=== PATIENT | male | born 1980 ===

== ENCOUNTER 2017-01-19 03:36 | Emergency (ER) | payer BC ==
[2017-01-19 03:50] VITALS: BP 117/76; PULSE 95; RESP 18; TEMP 97.7; O2SAT 100
--- NOTE | 2017-01-19 05:24 | ED PDOC ---
Upper Extremity Pain/Injury Time Seen by Provider: 01/19/17 03:57 Chief Complaint (Nursing): Upper Extremity Problem/Injury Chief Complaint (Provider): Right Shoulder Injury History Per: Patient History/Exam Limitations: no limitations Onset/Duration Of Symptoms: Hrs Current Symptoms Are (Timing): Still Present Additional Complaint(s): 3:57 Jarad Davis is a 36 year old male that presents to the ED with a chief complaint of a right shoulder injury he obtained directly as a result of falling down a flight stairs on an outstretched right hand. which led to him feeling pain in his right shoulder, earlier today. Patient admits to drinking, and denies any LOC or head injury. Past Medical History Reviewed: Historical Data, Nursing Documentation, Vital Signs Vital Signs: Last Vital Signs Temp 97.7 F 01/19/17 03:46 Pulse 95 H 01/19/17 03:46 Resp 18 01/19/17 03:46 BP 117/76 01/19/17 03:46 Pulse Ox 100 01/19/17 03:46 - Medical History PMH: No Chronic Diseases - Family History Family History: States: Unknown Family Hx - Allergies Allergies/Adverse Reactions: Allergies Allergy/AdvReac Type Severity Reaction Status Date / Time No Known Allergies Allergy Verified 01/19/17 03:46 Review of Systems Musculoskeletal: Positive for: Shoulder Pain (right ) Physical Exam - Reviewed Nursing Documentation Reviewed: Yes Vital Signs Reviewed: Yes - Physical Exam Appears: Positive for: Non-toxic, Uncomfortable Head Exam: Positive for: ATRAUMATIC, NORMOCEPHALIC Skin: Positive for: Normal Color, Warm, Dry ENT: Positive for: Normal ENT Inspection Cardiovascular/Chest: Positive for: Regular Rate, Rhythm. Negative for: Murmur Respiratory: Positive for: Normal Breath Sounds. Negative for: Wheezing Pulses-Radial (L): 2+ Pulses-Radial (R): 2+ Extremity: Positive for: Deformity (right shoulder is deformed) Neurologic/Psych: Positive for: Alert, Oriented - ECG O2 Sat by Pulse Oximetry: 100 (RA) Pulse Ox Interpretation: Normal Medical Decision Making Medical Decision Makin:17 Plan: * X-Ray Right Shoulder 4:40 After reviewing the X-Ray, saw that anterior right shoulder was dislocated. Will do procedure. 5:05 PE Post Shoulder Reduction * Shoulder completely normal, full ROM, puses normal. No X-Ray needed. Orthopedic follow-up, immobilizer placed. Scribe Attestation: Documented by Debbi London, acting as a scribe for Keeley Dean MD. Provider Scribe Attestation: All medical record entries made by the Scribe were at my direction and personally dictated by me. I have reviewed the chart and agree that the record accurately reflects my personal performance of the history, physical exam, medical decision making, and the department course for this patient. I have also personally directed, reviewed, and agree with the discharge instructions and disposition. Procedures - Joint Reduction Joint Reduction Site: shoulder (R) Conscious Sedation: No Reduction Attempts: 1 Post Joint Reduction Film: joint reduced Progress: 5:00 Performed shoulder reduction without sedation, used both Milch technique and external rotation technique. Successfully reduced shoulder with one attempt, no complications. Disposition - Clinical Impression Clinical Impression: Shoulder dislocation - Patient ED Disposition Is Patient to be Admitted: No - Disposition Referrals: Govind Perez III, MD [Staff Provider] - Disposition Time: 05:05 Condition: GOOD Additional Instructions: Follow up with orthopedist within 1 week. Carry immobilizer at all times. Instructions: Shoulder Dislocation (ED) Forms: [facility] ED School/Work Excuse
--- NOTE | 2017-01-19 08:14 | RAD ---
PROCEDURE: Radiographs of the Right Shoulder HISTORY: shoulder pain deformity COMPARISON: No prior. FINDINGS: BONES: No fracture is seen. No lytic process is noted. JOINTS: There is evidence of an anterior shoulder dislocation with the humeral head overlying the glenoid on the frontal view and anterior to the bony glenoid on the Y-view. No AC joint widening is seen. SOFT TISSUES: Normal. OTHER FINDINGS: None. IMPRESSION: Right anterior shoulder dislocation. No appreciable cortical irregularity to suggest fracture.
== END 2017-01-19 05:13 | disposition home or self-care (01) ==
LOC: H.ER 03:36
DX: S43.004A Unspecified dislocation of right shoulder joint, initial encounter (principal); W10.9XXA Fall (on) (from) unspecified stairs and steps, initial encounter